=== PATIENT | female | born 1990 | race Caucasian/White ===

== ENCOUNTER 2016-04-11 00:02 | Inpatient (IN) | payer OTHER ==
[2016-04-11] MEDS ORDERED: Lactated Ringers 500 ML IV ONE (00:18)
[2016-04-11] MEDS ORDERED: Penicillin G Potassium 5 MILLUNITS in Sodium Chloride 0.9% 100 ML IV ONE ×2 (00:18→09:00)
[2016-04-11] MEDS ORDERED: Misoprostol 400 MCG (4 X 100 MCG TAB) RECTAL PRN (00:18)
[2016-04-11] MEDS ORDERED: Acetaminophen 325 MG Tab PO PRN (00:18)
[2016-04-11] MEDS ORDERED: Carboprost Tromethamine 250 MCG/1 ML Amp IM PRN (00:18)
[2016-04-11] MEDS ORDERED: Lidocaine 1% 30 ML SDV INJECT PRN (00:18)
[2016-04-11] MEDS ORDERED: fentaNYL 100 MCG/2 ML SDV IVPUSH PRN (00:18)
[2016-04-11] MEDS ORDERED: Methylergonovine 0.2 MG/1 ML Amp IM PRN (00:18)
[2016-04-11] MEDS ORDERED: Ondansetron 4 MG/2 ML SDV IV PRN (00:18)
--- NOTE | 2016-04-11 00:28 | PCM.LDHP ---
L&D History of Present Illness - General Date of Service: 04/11/16 Admit Problem/Dx: Patient Status Order with Admit Dx/Problem 04/11/16 00:18 Patient Status [ADT] Routine Patient Status: Admit to Inpatient Admission Diagnosis/Problem: care Reason for Admit: IOL for postdates Nurse Unit Type: Labor and Delivery Admitting Physician: Sudha Kent Attending Physician: Sudha Kent Admission Diagnosis/Problem Admission Diagnosis/Problem care Source of Information: Patient History Limitations: Reports: No limitations - History of Present Illness Introduction:: 26-year-old at 41w0d presents for induction of labor for post-dates . She is not feeling contractions. Baby has been active. No vaginal bleeding or leaking of fluid. No new headaches or vision changes. Past Medical History - Past Health History Medical/Surgical History: Denies Medical/Surgical History Social & Family History - Tobacco Use Smoking Status *Q: Never Smoker H&P Review of Systems - Review of Systems: Review Of Systems: See Below General: Reports: no symptoms HEENT: Reports: no symptoms Pulmonary: Reports: no symptoms Cardiovascular: Reports: no symptoms Gastrointestinal: Reports: No symptoms Genitourinary: Reports: no symptoms Musculoskeletal: Reports: no symptoms L&D Exam - Exam Exam: See Below - OB Specific heart tones: present heart tones per min: 130 Heart Rate (FHR) Variability: Moderate (6-25 bmp) Presentation: Vertex (Confirmed with bedside ultrasound in clinic on Thursday (04/07/16)) - Patel Score Patel Score Cervix Position: Posterior Patel Score Consistency: Soft Patel Score Effacement: >80% Patel Score Dilation: Closed (Fingertip) Patel Score Infant's Station: -2 Patel Score Total: 6 - Exam General: alert, oriented HEENT: Mucosa moist & pink Lungs: Clear to auscultation, Normal respiratory effort Cardiovascular: regular rate, regular rhythm. No: systolic murmur, diastolic murmur Abdomen: normal bowel sounds, soft Genitourinary: Normal external exam Extremities: edema (+1 in lower extremities) Skin: warm, dry, intact - Patient Data Result Diagrams: 04/11/16 00:25 - Problem List (1) care in third trimester SNOMED Code(s): 440416057, 04079035, 31272439, 980161941, 136593638 ICD Code: Z34.93 - ENCNTR FOR SUPRVSN OF NORMAL PREG, UNSP, THIRD TRIMESTER Status: Acute Current Visit: Yes (2) Positive GBS test SNOMED Code(s): 7976319079017, 4646369121388 ICD Code: B95.1 - STREPTOCOCCUS, GROUP B, CAUSING DISEASES CLASSD ELSWHR Status: Acute Current Visit: Yes (3) Post-dates SNOMED Code(s): 25984276 ICD Code: O48.0 - POST-TERM Status: Acute Current Visit: Yes Problem List Initiated/Reviewed/Updated: Yes Orders Last 24hrs: Active Orders 24 hr Category Date Time Status Patient Status [ADT] Routine ADT 04/11/16 00:18 Ordered Communication Order [RC] ASDIRECTED Care 04/11/16 00:18 Ordered Heart Tones [RC] PER UNIT ROUTINE Care 04/11/16 00:18 Ordered Notify Provider Vital Signs OB [RC] ASDIRECTED Care 04/11/16 00:18 Ordered Notify Provider [RC] PRN Care 04/11/16 00:18 Ordered Pump Management, Intrathecal [RC] ASDIRECTED Care 04/11/16 00:18 Ordered Up ad Alda [RC] ASDIRECTED Care 04/11/16 00:18 Ordered Vital Signs [RC] PER UNIT ROUTINE Care 04/11/16 00:18 Ordered Clear Liquid Diet [DIET] Diet 04/11/16 Breakfast Ordered CBC W/O DIFF,HEMOGRAM [HEME] Routine Lab 04/11/16 00:18 Ordered Acetaminophen [Tylenol] Med 04/11/16 00:18 Ordered 650 mg PO Q4H PRN Carboprost Tromethamine [Hemabate DS] Med 04/11/16 00:18 Ordered 250 mcg IM ASDIRECTED PRN Lactated Ringers @ 125 MLS/HR(1000ml) Med 04/11/16 00:30 Ordered Lactated Ringers [Ringers, Lactated] 1,000 ml IV ASDIRECTED Lactated Ringers [Ringers, Lactated] 500 ml Med 04/11/16 00:18 Ordered IV .BOLUS Lidocaine 1% [Xylocaine-MPF 1%] Med 04/11/16 00:18 Ordered 10 ml INJECT ASDIRECTED PRN Methylergonovine [Methergine] Med 04/11/16 00:18 Ordered 0.2 mg IM ASDIRECTED PRN Misoprostol [Cytotec] Med 04/11/16 00:18 Ordered 800 mcg RECTAL ASDIRECTED PRN Ondansetron [Zofran] Med 04/11/16 00:18 Ordered 4 mg IV Q4H PRN Penicillin G Potassium [Pfizerpen] 3 millunits Med 04/11/16 02:00 Ordered Sodium Chloride 0.9% [Normal Saline] 100 ml IV Q4HR Penicillin G Potassium [Pfizerpen] 5 millunits Med 04/11/16 00:18 Ordered Sodium Chloride 0.9% [Normal Saline] 100 ml IV ONETIME Sodium Chloride 0.9% [Saline Flush] Med 04/11/16 00:18 Ordered 10 ml FLUSH ASDIRECTED PRN fentaNYL [Sublimaze] Med 04/11/16 00:18 Ordered 100 mcg IVPUSH Q1H PRN Saline Lock Insert [OM.PC] Routine Oth 04/11/16 00:18 Ordered Resuscitation Status Routine Resus Stat 04/11/16 00:18 Ordered Medication Orders Acetaminophen (Tylenol) 650 mg PO Q4H PRN PRN Reason: Pain (Mild 1-3) and fever Carboprost Tromethamine (Hemabate Ds) 250 mcg IM ASDIRECTED PRN PRN Reason: HEMORRHAGE Fentanyl (Sublimaze) 100 mcg IVPUSH Q1H PRN PRN Reason: Pain (moderate 4-6) Lactated Ringer's (Ringers, Lactated) 500 mls @ 999 mls/hr IV .BOLUS ONE Stop: 04/11/16 00:48 Lactated Ringer's (Ringers, Lactated) 1,000 mls @ 125 mls/hr IV ASDIRECTED BALJIT Penicillin G Potassium 5 (millunits/ Sodium Chloride) 100 mls @ 200 mls/hr IV ONETIME ONE Stop: 04/11/16 00:47 Penicillin G Potassium 3 (millunits/ Sodium Chloride) 100 mls @ 200 mls/hr IV Q4HR BALJIT Lidocaine HCl (Xylocaine-Mpf 1%) 10 ml INJECT ASDIRECTED PRN PRN Reason: Perineal Repair Methylergonovine Maleate (Methergine) 0.2 mg IM ASDIRECTED PRN PRN Reason: Hemorrhage Misoprostol (Cytotec) 800 mcg RECTAL ASDIRECTED PRN PRN Reason: Hemorrhage Ondansetron HCl (Zofran) 4 mg IV Q4H PRN PRN Reason: Nausea/Vomiting Sodium Chloride (Saline Flush) 10 ml FLUSH ASDIRECTED PRN PRN Reason: Keep Vein Open Assessment/Plan Comment:: ASSESSMENT: 26-year-old who presents to Labor & Delivery at 41w0d for induction of labor --GBS Positive PLAN: 1. Admit to Labor & Delivery 2. Initiate routine intrapartum orders 3. Will place Cytotec vaginally 4. Will start GBS prophylaxis when in labor 5. Plan for pitocin and/or AROM to augment labor if needed 6. Expectant management. Anticipate . Sudha Kent MD
[2016-04-11] MEDS ORDERED: Oxytocin/Normal Saline 30 UNIT/500 ML BAG IV SCH ×2 (00:30→08:30)
[2016-04-11] MEDS: Misoprostol 50 MCG (1/2 of 100 MCG) Tab VAG PRN ×2 (01:04→05:33)
[2016-04-11] MEDS: Lactated Ringers 1,000 ML IV SCH ×2 (08:23→13:20)
[2016-04-11] MEDS: Sodium Chloride 0.9% 10 ML Syringe FLUSH PRN ×2 (08:23→13:15)
--- NOTE | 2016-04-11 11:44 | PCM.SN ---
- Free Text/Narrative Note: Intrathecal, sitting position, sterile prep and drape. 1% lidocaine w bicarb for skinwheal to L2 L3 interspace, introducer, 24 ga pencan x 2. Pos CSF, neg heme, neg parasthesia. 20 mcg pf sufenta, 30 mcg pf fentanyl, 0.1 ml pf 1:1000 epi, and 6 mg of 0.75% pf bupivacaine injected after CSF aspiration. Pt to L lateral position. Procedure time 1120 to 1145
[2016-04-11] MEDS ORDERED: Penicillin G Potassium 3 MILLUNITS in Sodium Chloride 0.9% 100 ML IV SCH (13:00)
[2016-04-11] MEDS ORDERED: Sodium Chloride 0.9% 10 ML Syringe FLUSH PRN (15:31)
[2016-04-11] MEDS ORDERED: Simethicone 80 MG Tab.Chew PO PRN (15:31)
[2016-04-11] MEDS ORDERED: Benzocaine/Menthol 20%-0.5% Spray 56 GM Canister TOP PRN (15:31)
--- NOTE | 2016-04-11 15:33 | PCM.DEL ---
L & D Note - General Info Date of Service: 04/11/16 - Delivery Note Labor: augmented by ARM, induced by oxytocin Cervical Ripening Method: Misoprostil Delivery Outcome: Livebirth Infant Delivery Method: Spontaneous Vaginal Delivery Presentation: Right Occiput Anterior (PHONG) (Confirmed with bedside ultrasound in clinic on Thursday (04/07/16)) Nuchal cord: none Anesthesia Type: Local, Spinal Anesthetic: lidocaine (xylocaine) 0.5% plain Local anesthetic volume: 4cc Amniotic Fluid Description: Clear Episiotomy Type: None Laceration: 1st degree, labial (Repaired with interrupted subreticular sutures and 2 standard interrupted sutures), perineal (Not repaired) Suture type: vicryl Suture size: 3-0 Placenta: intact, spontaneous Cord: 3 vessels Estimated blood loss: 200 : stimulated Provider: Sudha Kent Score 1 min: 9 Score 5 min: 9 Second Stage Interventions: Reports: Second Nurse Assessed Progress of Descent, Second Nurse Reviewed Contraction Pattern, Second Nurse Reviewed Heart Tones, Encouragement Given, Pushing Effectively Delivery Comments (Free Text/Narrative):: 26-year-old presented to the OB floor for induction of labor for postdates . Cytotec 25 mcg was inserted vaginally. A second dose was given 4 hours later. Four hours after the 2nd dose was given, Penicillin for GBS was started as was pitocin for continued induction of labor. Patient received an intrathecal a few hours later. Around 1200 (12 hours after cervical ripening started), AROM was peformed. Patient progressed to complete dilation over the next 2 hours. She pushed for approximately 1 hour and delivered a viable female infant with Apgars of 9 and 9. Baby's measurements are currently pending. Placental delivered intact a short time later, and a 3 vessel cord was noted. A 1st degree perineal laceration was noted but was hemostatic so no sutures were placed. A moderate left labial laceration was noted that extended alongside the urethra. A catheter was placed in the urethra prior to repair of the laceration. The left labial laceration was approximated with interrupted deep and superficial sutures. Bleeding was noted to be appropriate. There were no immediate complications. Induction Criteria - Patel Score Patel Score Dilation: Closed Patel Score Effacement: >80% Patel Score Infant's Station: -2 Patel Score Consistency: Soft Patel Score Cervix Position: Posterior Patel Score Total: 6 Patel Score Presenting Part: Reports: Cephalic - Induction Gestational Age >/= 39 wks: Yes Estimated pelvis: Reports: Adequate Reassuring monitoring strip: Yes Absence of tachy systole: Yes - General Info Date of Service: 04/11/16 - Patient Data Vitals - most recent: Last Vital Signs Temp 36.7 C 04/11/16 08:30 Pulse 75 04/11/16 08:30 Resp 16 04/11/16 08:30 BP 142/81 H 04/11/16 08:30 Pulse Ox 97 04/11/16 00:36 Weight - most recent: 84.822 kg I&O - last 24 hours: Intake & Output 04/11/16 04/11/16 04/11/16 06:59 14:59 22:59 Intake Total 350 Balance 350 Lab Results last 24 hrs: Laboratory Results - last 24 hr 04/11/16 Range/Units 00:25 WBC 10.2 H (5.0-10.0) 10^3/uL RBC 3.81 L (4.2-5.4) 10^6/uL Hgb 12.0 (12.0-16.0) g/dL Hct 36.0 L (37.0-47.0) % MCV 94.5 (80-100) fL MCH 31.5 (27.0-34.0) pg MCHC 33.3 (33.0-35.0) g/dL Plt Count 211 (150-450) 10^3/uL Med Orders - Current: Current Medications Acetaminophen (Tylenol) 650 mg PO Q4H PRN PRN Reason: Pain (Mild 1-3) and fever Carboprost Tromethamine (Hemabate Ds) 250 mcg IM ASDIRECTED PRN PRN Reason: HEMORRHAGE Lactated Ringer's (Ringers, Lactated) 1,000 mls @ 125 mls/hr IV ASDIRECTED BALJIT Last Admin: 04/11/16 13:20 Dose: 125 mls/hr Oxytocin/Sodium Chloride (Pitocin In Ns 30 Unit/500 Ml) 30 unit in 500 mls @ 2 mls/hr IV TITRATE BALJIT; 2 MUNITS/MIN PRN Reason: Protocol Oxytocin/Sodium Chloride (Pitocin In Ns 30 Unit/500 Ml) 30 unit in 500 mls @ 2 mls/hr IV TITRATE BALJIT; 2 MUNITS/MIN PRN Reason: Protocol Lidocaine HCl (Xylocaine-Mpf 1%) 10 ml INJECT ASDIRECTED PRN PRN Reason: Perineal Repair Methylergonovine Maleate (Methergine) 0.2 mg IM ASDIRECTED PRN PRN Reason: Hemorrhage Misoprostol (Cytotec) 800 mcg RECTAL ASDIRECTED PRN PRN Reason: Hemorrhage Misoprostol (Cytotec) 25 mcg VAG Q4HR PRN PRN Reason: Induction of labor Last Admin: 04/11/16 05:33 Dose: 25 mcg Ondansetron HCl (Zofran) 4 mg IV Q4H PRN PRN Reason: Nausea/Vomiting Last Admin: 04/11/16 11:15 Dose: 4 mg Sodium Chloride (Saline Flush) 10 ml FLUSH ASDIRECTED PRN PRN Reason: Keep Vein Open Last Admin: 04/11/16 13:15 Dose: 10 ml Discontinued Medications Fentanyl (Sublimaze) 100 mcg IVPUSH Q1H PRN PRN Reason: Pain (moderate 4-6) Last Admin: 04/11/16 09:43 Dose: 100 mcg Lactated Ringer's (Ringers, Lactated) 500 mls @ 999 mls/hr IV .BOLUS ONE Stop: 04/11/16 00:48 Last Admin: 04/11/16 11:08 Dose: 999 mls/hr Penicillin G Potassium 5 (millunits/ Sodium Chloride) 100 mls @ 200 mls/hr IV ONETIME ONE Stop: 04/11/16 00:47 Penicillin G Potassium 3 (millunits/ Sodium Chloride) 100 mls @ 200 mls/hr IV Q4H BALJIT Penicillin G Potassium 5 (millunits/ Sodium Chloride) 100 mls @ 200 mls/hr IV ONETIME ONE Stop: 04/11/16 09:29 Last Admin: 04/11/16 09:21 Dose: 200 mls/hr Penicillin G Potassium 3 (millunits/ Sodium Chloride) 100 mls @ 200 mls/hr IV Q4H BALJIT Last Admin: 04/11/16 13:14 Dose: 200 mls/hr - Problem List & Annotations (1) care in third trimester SNOMED Code(s): 111484080, 18039081, 63678987, 930378257, 077990737 Code(s): Z34.93 - ENCNTR FOR SUPRVSN OF NORMAL PREG, UNSP, THIRD TRIMESTER Status: Acute Current Visit: Yes (2) Positive GBS test SNOMED Code(s): 2714010050238, 2069602235669 Code(s): B95.1 - STREPTOCOCCUS, GROUP B, CAUSING DISEASES CLASSD ELSWHR Status: Acute Current Visit: Yes (3) Post-dates SNOMED Code(s): 37277039 Code(s): O48.0 - POST-TERM Status: Acute Current Visit: Yes (4) (normal spontaneous vaginal delivery) SNOMED Code(s): 88540606 Code(s): O80 - ENCOUNTER FOR FULL-TERM UNCOMPLICATED DELIVERY Status: Acute Current Visit: Yes (5) Obstetric labial laceration, delivered, current hospitalization SNOMED Code(s): 017861668, 406941872 Code(s): O70.0 - FIRST DEGREE PERINEAL LACERATION DURING DELIVERY Status: Acute Current Visit: Yes - Problem List Review Problem List Initiated/Reviewed/Updated: Yes - My Orders Last 24 Hours: My Active Orders 04/11/16 00:18 Patient Status [ADT] Routine Heart Tones [RC] PER UNIT ROUTINE Up ad Alda [RC] ASDIRECTED Acetaminophen [Tylenol] 650 mg PO Q4H PRN Carboprost Tromethamine [Hemabate DS] 250 mcg IM ASDIRECTED PRN Lidocaine 1% [Xylocaine-MPF 1%] 10 ml INJECT ASDIRECTED PRN Methylergonovine [Methergine] 0.2 mg IM ASDIRECTED PRN Misoprostol [Cytotec] 800 mcg RECTAL ASDIRECTED PRN Ondansetron [Zofran] 4 mg IV Q4H PRN Sodium Chloride 0.9% [Saline Flush] 10 ml FLUSH ASDIRECTED PRN Saline Lock Insert [OM.PC] Routine Resuscitation Status Routine 04/11/16 00:28 Misoprostol [Cytotec] 25 mcg VAG Q4HR PRN 04/11/16 00:30 Lactated Ringers [Ringers, Lactated] 1,000 ml IV ASDIRECTED Oxytocin/Normal Saline [Pitocin in NS 30 UNIT/500 ML] 30 unit in 500 ml IV TITRATE 04/11/16 08:30 Oxytocin/Normal Saline [Pitocin in NS 30 UNIT/500 ML] 30 unit in 500 ml IV TITRATE 04/11/16 15:31 Notify Provider Vital Signs OB [RC] ASDIRECTED Up ad Alda [RC] ASDIRECTED Vital Signs [RC] PFP Consult to Channeler Runner [CONS] Routine Benzocaine/Menthol [Dermoplast Pain Relief [place]] See Dose Instructions TOP Q4H PRN Docusate Sodium [Colace] 100 mg PO BID PRN Ibuprofen [Motrin] 800 mg PO Q8H PRN Simethicone 80 mg PO Q4H PRN Sodium Chloride 0.9% [Saline Flush] 10 ml FLUSH ASDIRECTED PRN Assess Lochia [WOMSER] Per Unit Routine Assess Uterine Involution [WOMSER] Per Unit Routine Breast Pump [WOMSER] Per Unit Routine Ice Therapy [OM.PC] Per Unit Routine Perineal Care [OM.PC] Per Unit Routine Saline Lock Insert [OM.PC] Urgent Sitz Bath [OM.PC] Per Unit Routine 04/11/16 Dinner Regular Diet [DIET] 04/12/16 09:00 Vit with Ca/FA/Iron [ Plus Iron] 1 each PO DAILY - Assessment Assessment:: 26-year-old, now , status post --Left labial laceration, repaired - Plan Plan:: 1. Initiate routine orders 2. Recommended generous use of ice packs as labia will likely swell and become tender. 3. consultation placed 4. Anticipate discharge 04/13/16 Sudha Kent MD
[2016-04-11] MEDS: Ibuprofen 800 MG Tab PO PRN (18:18)
[2016-04-11] MEDS ORDERED: Ketorolac 30 MG/ML SDV IVPUSH ONE (19:50)
[2016-04-11] MEDS: Acetaminophen/HYDROcodone 325-10 MG Tab PO PRN (20:07)
[2016-04-11] MEDS: Docusate Sodium 100 MG Cap PO PRN (20:08)
[2016-04-12] MEDS: Acetaminophen/HYDROcodone 325-10 MG Tab PO PRN ×4 (00:08→23:49)
[2016-04-12] MEDS: Ibuprofen 800 MG Tab PO PRN ×2 (03:00→18:20)
[2016-04-12] MEDS: Penicillin G Potassium 3 MILLUNITS in Sodium Chloride 0.9% 100 ML IV SCH (03:13)
[2016-04-12] MEDS: Docusate Sodium 100 MG Cap PO PRN ×2 (09:12→20:04)
[2016-04-12] MEDS: Prenatal Multivitamin with Calcium/Folic Acid/Iron Tab PO SCH (09:12)
[2016-04-12] MEDS ORDERED: fentaNYL 100 MCG/2 ML SDV IV ONE (12:59)
--- NOTE | 2016-04-12 13:15 | PCM.PNPP ---
- General Info Date of Service: 04/12/16 Admission Dx/Problem (Free Text): Postdates Induction of labor at 41w0d GBS positive Subjective Update: 26-year-old, now , PPD#1 after with left labial laceration. She did receive 1 dose of [place] last night for pain but has been doing well since then. She is ambulating without difficulty. Tolerating a normal diet. Voiding without difficulty. Passing gas. No concerns per patient or nursing. Functional Status: Reports: pain controlled, tolerating diet, ambulating, urinating - Review of Systems General: Reports: no symptoms HEENT: Reports: no symptoms Pulmonary: Reports: no symptoms Cardiovascular: Reports: no symptoms Gastrointestinal: Reports: No symptoms Genitourinary: Reports: no symptoms Musculoskeletal: Reports: no symptoms Skin: Reports: no symptoms - General Info Date of Service: 04/12/16 - Patient Data Vital Signs - most recent: Last Vital Signs Temp 36.7 C 04/12/16 08:00 Pulse 92 04/12/16 08:00 Resp 16 04/12/16 08:00 BP 109/61 04/12/16 08:00 Pulse Ox 98 04/12/16 08:00 Weight - most recent: 84.822 kg I&O - last 24 hours: Intake & Output 04/11/16 04/12/16 04/12/16 22:59 06:59 14:59 Intake Total 1300 750 Balance 1300 750 Med Orders - Current: Current Medications Acetaminophen (Tylenol) 650 mg PO Q4H PRN PRN Reason: Pain (Mild 1-3) and fever Acetaminophen/Hydrocodone Bitart ([place] 325-10 Mg) 1 tab PO Q4H PRN PRN Reason: Pain Last Admin: 04/12/16 03:46 Dose: 1 tab Benzocaine/Menthol (Dermoplast Pain Relief [place]) 0 gm TOP Q4H PRN PRN Reason: Perineal comfort measures Last Admin: 04/11/16 18:17 Dose: 1 spray Carboprost Tromethamine (Hemabate Ds) 250 mcg IM ASDIRECTED PRN PRN Reason: HEMORRHAGE Docusate Sodium (Colace) 100 mg PO BID PRN PRN Reason: Constipation Last Admin: 04/12/16 09:12 Dose: 100 mg Lactated Ringer's (Ringers, Lactated) 1,000 mls @ 125 mls/hr IV ASDIRECTED BALJIT Last Infusion: 04/11/16 18:42 Dose: 0 mls/hr Oxytocin/Sodium Chloride (Pitocin In Ns 30 Unit/500 Ml) 30 unit in 500 mls @ 2 mls/hr IV TITRATE BALJIT; 2 MUNITS/MIN PRN Reason: Protocol Oxytocin/Sodium Chloride (Pitocin In Ns 30 Unit/500 Ml) 30 unit in 500 mls @ 2 mls/hr IV TITRATE BALJIT; 2 MUNITS/MIN PRN Reason: Protocol Last Titration: 04/11/16 18:20 Dose: Infused Ibuprofen (Motrin) 800 mg PO Q8H PRN PRN Reason: Mild Pain or Fever Last Admin: 04/12/16 03:00 Dose: 800 mg Lidocaine HCl (Xylocaine-Mpf 1%) 10 ml INJECT ASDIRECTED PRN PRN Reason: Perineal Repair Last Admin: 04/11/16 15:10 Dose: 10 ml Methylergonovine Maleate (Methergine) 0.2 mg IM ASDIRECTED PRN PRN Reason: Hemorrhage Misoprostol (Cytotec) 800 mcg RECTAL ASDIRECTED PRN PRN Reason: Hemorrhage Misoprostol (Cytotec) 25 mcg VAG Q4HR PRN PRN Reason: Induction of labor Last Admin: 04/11/16 05:33 Dose: 25 mcg Ondansetron HCl (Zofran) 4 mg IV Q4H PRN PRN Reason: Nausea/Vomiting Last Admin: 04/11/16 11:15 Dose: 4 mg Prenat Multivit/It Operations Analyst/Iron/Folic Ac ( Plus Iron) 1 each PO DAILY BALJIT Last Admin: 04/12/16 09:12 Dose: 1 each Simethicone (Simethicone) 80 mg PO Q4H PRN PRN Reason: Gas Sodium Chloride (Saline Flush) 10 ml FLUSH ASDIRECTED PRN PRN Reason: Keep Vein Open Last Admin: 04/11/16 13:15 Dose: 10 ml Sodium Chloride (Saline Flush) 10 ml FLUSH ASDIRECTED PRN PRN Reason: Keep Vein Open Discontinued Medications Fentanyl (Sublimaze) 100 mcg IVPUSH Q1H PRN PRN Reason: Pain (moderate 4-6) Last Admin: 04/11/16 09:43 Dose: 100 mcg Lactated Ringer's (Ringers, Lactated) 500 mls @ 999 mls/hr IV .BOLUS ONE Stop: 04/11/16 00:48 Last Admin: 04/11/16 11:08 Dose: 999 mls/hr Penicillin G Potassium 5 (millunits/ Sodium Chloride) 100 mls @ 200 mls/hr IV ONETIME ONE Stop: 04/11/16 00:47 Last Admin: 04/12/16 03:12 Dose: Not Given Penicillin G Potassium 3 (millunits/ Sodium Chloride) 100 mls @ 200 mls/hr IV Q4H [facility] Last Admin: 04/12/16 03:13 Dose: Not Given Penicillin G Potassium 5 (millunits/ Sodium Chloride) 100 mls @ 200 mls/hr IV ONETIME ONE Stop: 04/11/16 09:29 Last Admin: 04/11/16 09:21 Dose: 200 mls/hr Penicillin G Potassium 3 (millunits/ Sodium Chloride) 100 mls @ 200 mls/hr IV Q4H [facility] Last Admin: 04/11/16 13:14 Dose: 200 mls/hr Ketorolac Tromethamine (Toradol) 30 mg IVPUSH ONETIME ONE Stop: 04/11/16 19:51 Last Admin: 04/12/16 06:29 Dose: Not Given - Interaction Disposition, : in Room with Family Infant Feeding: Breastfed Infant; Nursed Well Support Person: - Recovery Exam Fundal Tone: Firm Fundal Level: At Umbilicus Fundal Placement: Midline Lochia Amount: Moderate Lochia Color: Rubra/Red Perineum Description: Intact, Minimal Bruising/Swelling Episiotomy/Laceration: Approximated Bladder Status: Voiding Urinary Elimination: Voided, Other (see below) Other Urinary Elimination, : denies pain or burning. Continues pericare. - Exam General: alert, oriented HEENT: Pupils equal, Mucous membr. moist/pink Lungs: Clear to auscultation, Normal respiratory effort Cardiovascular: regular rate, regular rhythm. No: murmurs Abdomen: soft, no tenderness Extremities: edema (Trace to lower extremities bilaterally) Skin: warm, dry, intact - Problem List & Annotations (1) care in third trimester SNOMED Code(s): 247802074, 23184362, 79702493, 397505143, 403818063 Code(s): Z34.93 - ENCNTR FOR SUPRVSN OF NORMAL PREG, UNSP, THIRD TRIMESTER Status: Acute Current Visit: Yes (2) Positive GBS test SNOMED Code(s): 3882671204959, 5057928035565 Code(s): B95.1 - STREPTOCOCCUS, GROUP B, CAUSING DISEASES CLASSD ELSWHR Status: Acute Current Visit: Yes (3) Post-dates SNOMED Code(s): 16069374 Code(s): O48.0 - POST-TERM Status: Acute Current Visit: Yes (4) (normal spontaneous vaginal delivery) SNOMED Code(s): 17010693 Code(s): O80 - ENCOUNTER FOR FULL-TERM UNCOMPLICATED DELIVERY Status: Acute Current Visit: Yes (5) Obstetric labial laceration, delivered, current hospitalization SNOMED Code(s): 076689003, 054196024 Code(s): O70.0 - FIRST DEGREE PERINEAL LACERATION DURING DELIVERY Status: Acute Current Visit: Yes - Problem List Review Problem List Initiated/Reviewed/Updated: Yes - My Orders Last 24 Hours: My Active Orders 04/11/16 15:31 Notify Provider Vital Signs OB [RC] ASDIRECTED Vital Signs [RC] 08,20 Consult to Collating Machine Operator [CONS] Routine Benzocaine/Menthol [Dermoplast Pain Relief [place]] See Dose Instructions TOP Q4H PRN Docusate Sodium [Colace] 100 mg PO BID PRN Ibuprofen [Motrin] 800 mg PO Q8H PRN Simethicone 80 mg PO Q4H PRN Sodium Chloride 0.9% [Saline Flush] 10 ml FLUSH ASDIRECTED PRN Assess Lochia [WOMSER] Per Unit Routine Assess Uterine Involution [WOMSER] Per Unit Routine Breast Pump [WOMSER] Per Unit Routine Ice Therapy [OM.PC] Per Unit Routine Perineal Care [OM.PC] Per Unit Routine Saline Lock Insert [OM.PC] Urgent Sitz Bath [OM.PC] Per Unit Routine 04/11/16 19:50 Acetaminophen/HYDROcodone [[place] 325-10 MG] 1 tab PO Q4H PRN 04/11/16 Dinner Regular Diet [DIET] 04/12/16 09:00 Vit with Ca/FA/Iron [ Plus Iron] 1 each PO DAILY - Assessment Assessment:: 26-year-old, now , PPD#1 status post --Left labial laceration, repaired - Plan Plan:: 1. Continue routine orders 2. Continue ice and other conservative measures. If pain worsens again, may have a 2nd dose of [place]. 3. consultation placed 4. Anticipate discharge 04/13/16 Sudha Kent MD
[2016-04-13] MEDS: Ibuprofen 800 MG Tab PO PRN (05:02)
[2016-04-13] MEDS: Acetaminophen/HYDROcodone 325-10 MG Tab PO PRN (05:03)
[2016-04-13] MEDS: Docusate Sodium 100 MG Cap PO PRN (09:05)
[2016-04-13] MEDS: Prenatal Multivitamin with Calcium/Folic Acid/Iron Tab PO SCH (09:05)
[2016-04-13 09:52] VITALS: BP 117/80
--- NOTE | 2016-04-13 12:16 | PCM.DCSUM1 ---
Discharge Summary - Hospital Course Free Text/Narrative:: 26-year-old, now , presented to labor and delivery on 04/11/16 for induction of labor due to postdates . Cervical ripening was done. Pitocin and AROM were used to augment labor. Patient delivered a viable baby girl on with Apgars of 9 and 9. She had a labial laceration that was repaired without difficulty. There were no complications with delivery. - Discharge Data Discharge Date: 04/13/16 Discharge Disposition: Home, Self-Care 01 Condition: Good - Discharge Diagnosis/Problem(s) (1) care in third trimester SNOMED Code(s): 707829038, [id number], 68026017, 296133424, 942052046 ICD Code: Z34.93 - ENCNTR FOR SUPRVSN OF NORMAL PREG, UNSP, THIRD TRIMESTER Status: Acute Current Visit: Yes (2) Positive GBS test SNOMED Code(s): 6196987825294, 7904793249403 ICD Code: B95.1 - STREPTOCOCCUS, GROUP B, CAUSING DISEASES CLASSD ELSWHR Status: Acute Current Visit: Yes (3) Post-dates SNOMED Code(s): 35645441 ICD Code: O48.0 - POST-TERM Status: Acute Current Visit: Yes (4) (normal spontaneous vaginal delivery) SNOMED Code(s): 00475481 ICD Code: O80 - ENCOUNTER FOR FULL-TERM UNCOMPLICATED DELIVERY Status: Acute Current Visit: Yes (5) Obstetric labial laceration, delivered, current hospitalization SNOMED Code(s): 775897747, 641725668 ICD Code: O70.0 - FIRST DEGREE PERINEAL LACERATION DURING DELIVERY Status: Acute Current Visit: Yes - Patient Summary/Data Operative Procedure(s) Performed: Normal spontaneous vaginal delivery. Left labial laceration repair Complications: None Consults: Consultations 04/11/16 15:31 Consult to Coremaking Supervisor [CONS] Routine Labs Pending at D/C: None Recommended Follow-up Testing/Procedures: None Planned Operative Procedure(s) after DC: None Hospital Course: Patient had an unremarkable course. She tolerates general diet and ambulates without difficulty. No fevers, chills, nausea or vomiting. Pain is minimal. - Patient Instructions Diet: Usual Diet as Tolerated Activity: Apply Ice, No Lifting Over 20 Pounds Driving: May Drive Today Showering/Bathing: May Shower Notify Provider of: Fever, Increased Pain - Discharge Plan Home Medications: Home Meds Acetaminophen [Tylenol] 650 mg PO Q4H PRN #0 tablet 04/13/16 [Rx] Docusate Sodium [Colace] 100 mg PO BID PRN #0 cap 04/13/16 [Rx] Ibuprofen [IJD: Ibuprofen] 800 mg PO Q8H PRN #0 tablet 04/13/16 [Rx] Patient Handouts: Home Care Instructions for Mom, Care of a Perineal Tear Referrals: Sudha Kent MD [Physician] - (6 weeks for visit) - Discharge Summary/Plan Comment DC Time >30 min.: No Discharge Summary/Plan Comment: Discharge home today with follow-up in 6 weeks for visit or sooner as needed. - General Info Date of Service: 04/13/16 Admission Dx/Problem (Free Text: Postdates Induction of labor at 41w0d GBS positive Subjective Update: 26-year-old, now , PPD#2 after with left labial laceration. Pain has been well controlled. She is ambulating without difficulty. Tolerating a normal diet. Voiding without difficulty. Passing gas. Bleeding is slowing down. well. No concerns per patient or nursing. Functional Status: Reports: pain controlled, tolerating diet, ambulating, urinating. Denies: new symptoms - Review of Systems General: Reports: no symptoms HEENT: Reports: no symptoms Pulmonary: Reports: no symptoms Cardiovascular: Reports: no symptoms Gastrointestinal: Reports: No symptoms Genitourinary: Reports: no symptoms Musculoskeletal: Reports: no symptoms Skin: Reports: no symptoms - Patient Data Vitals - Most Recent: Last Vital Signs Temp 36.9 C 04/13/16 09:05 Pulse 92 04/13/16 09:05 Resp 16 04/13/16 09:05 BP 117/80 04/13/16 09:05 Pulse Ox 99 04/13/16 09:05 Weight - Most Recent: 84.822 kg I&O - Last 24 hours: Intake & Output 04/12/16 04/13/16 04/13/16 22:59 06:59 14:59 Intake Total 460 780 Balance 460 780 Med Orders - Current: Current Medications Acetaminophen (Tylenol) 650 mg PO Q4H PRN PRN Reason: Pain (Mild 1-3) and fever Acetaminophen/Hydrocodone Bitart (Richardson 325-10 Mg) 1 tab PO Q4H PRN PRN Reason: Pain Last Admin: 04/13/16 05:03 Dose: 1 tab Benzocaine/Menthol (Dermoplast Pain Relief [place]) 0 gm TOP Q4H PRN PRN Reason: Perineal comfort measures Last Admin: 04/11/16 18:17 Dose: 1 spray Carboprost Tromethamine (Hemabate Ds) 250 mcg IM ASDIRECTED PRN PRN Reason: HEMORRHAGE Docusate Sodium (Colace) 100 mg PO BID PRN PRN Reason: Constipation Last Admin: 04/13/16 09:05 Dose: 100 mg Lactated Ringer's (Ringers, Lactated) 1,000 mls @ 125 mls/hr IV ASDIRECTED BALJIT Last Infusion: 04/11/16 18:42 Dose: 0 mls/hr Oxytocin/Sodium Chloride (Pitocin In Ns 30 Unit/500 Ml) 30 unit in 500 mls @ 2 mls/hr IV TITRATE BALJIT; 2 MUNITS/MIN PRN Reason: Protocol Oxytocin/Sodium Chloride (Pitocin In Ns 30 Unit/500 Ml) 30 unit in 500 mls @ 2 mls/hr IV TITRATE BALJIT; 2 MUNITS/MIN PRN Reason: Protocol Last Titration: 04/11/16 18:20 Dose: Infused Ibuprofen (Motrin) 800 mg PO Q8H PRN PRN Reason: Mild Pain or Fever Last Admin: 04/13/16 05:02 Dose: 800 mg Lidocaine HCl (Xylocaine-Mpf 1%) 10 ml INJECT ASDIRECTED PRN PRN Reason: Perineal Repair Last Admin: 04/11/16 15:10 Dose: 10 ml Methylergonovine Maleate (Methergine) 0.2 mg IM ASDIRECTED PRN PRN Reason: Hemorrhage Misoprostol (Cytotec) 800 mcg RECTAL ASDIRECTED PRN PRN Reason: Hemorrhage Misoprostol (Cytotec) 25 mcg VAG Q4HR PRN PRN Reason: Induction of labor Last Admin: 04/11/16 05:33 Dose: 25 mcg Ondansetron HCl (Zofran) 4 mg IV Q4H PRN PRN Reason: Nausea/Vomiting Last Admin: 04/11/16 11:15 Dose: 4 mg Prenat Multivit/Acid Remover/Iron/Folic Ac ( Plus Iron) 1 each PO DAILY [facility] Last Admin: 04/13/16 09:05 Dose: 1 each Simethicone (Simethicone) 80 mg PO Q4H PRN PRN Reason: Gas Sodium Chloride (Saline Flush) 10 ml FLUSH ASDIRECTED PRN PRN Reason: Keep Vein Open Last Admin: 04/11/16 13:15 Dose: 10 ml Sodium Chloride (Saline Flush) 10 ml FLUSH ASDIRECTED PRN PRN Reason: Keep Vein Open Discontinued Medications Fentanyl (Sublimaze) 100 mcg IVPUSH Q1H PRN PRN Reason: Pain (moderate 4-6) Last Admin: 04/11/16 09:43 Dose: 100 mcg Lactated Ringer's (Ringers, Lactated) 500 mls @ 999 mls/hr IV .BOLUS ONE Stop: 04/11/16 00:48 Last Admin: 04/11/16 11:08 Dose: 999 mls/hr Penicillin G Potassium 5 (millunits/ Sodium Chloride) 100 mls @ 200 mls/hr IV ONETIME ONE Stop: 04/11/16 00:47 Last Admin: 04/12/16 03:12 Dose: Not Given Penicillin G Potassium 3 (millunits/ Sodium Chloride) 100 mls @ 200 mls/hr IV Q4H [facility] Last Admin: 04/12/16 03:13 Dose: Not Given Penicillin G Potassium 5 (millunits/ Sodium Chloride) 100 mls @ 200 mls/hr IV ONETIME ONE Stop: 04/11/16 09:29 Last Admin: 04/11/16 09:21 Dose: 200 mls/hr Penicillin G Potassium 3 (millunits/ Sodium Chloride) 100 mls @ 200 mls/hr IV Q4H [facility] Last Admin: 04/11/16 13:14 Dose: 200 mls/hr Ketorolac Tromethamine (Toradol) 30 mg IVPUSH ONETIME ONE Stop: 04/11/16 19:51 Last Admin: 04/12/16 06:29 Dose: Not Given - Exam General: Reports: alert, oriented HEENT: Reports: Pupils reactive, Mucous membr. moist/pink Lungs: Reports: Clear to auscultation, Normal respiratory effort Cardiovascular: Reports: regular rate, regular rhythm Extremities: Reports: edema (Trace to lower extremities bilaterally (left slightly more than right)) Skin: Reports: warm, dry, intact *Q Meaningful Use (DIS) - VTE *Q VTE Criteria *Q: - Stroke *Q Stroke Criteria *Q: - AMI *Q AMI Criteria *Q:
== END 2016-04-13 13:00 | disposition home or self-care (01) | DRG 775 ==
LOC: DL.OBCHECK 00:02 → DL.OB 00:05 → OBSVTOIN 15:04 → DL.OB 15:04
PROVIDERS: ADMIT Family Medicine; ATTEND Family Medicine
PROC: 10E0XZZ Delivery of Products of Conception, External Approach (ICD-10-PCS; principal; 2016-04-11)
PROC: 4A1HXFZ Monitoring of Products of Conception, Cardiac Rhythm, External Approach (ICD-10-PCS; 2016-04-11)
PROC: 3E033VJ Introduction of Other Hormone into Peripheral Vein, Percutaneous Approach (ICD-10-PCS; 2016-04-11)
PROC: 0HQ9XZZ Repair Perineum Skin, External Approach (ICD-10-PCS; 2016-04-11)
PROC: 3E0S3BZ Introduction of Anesthetic Agent into Epidural Space, Percutaneous Approach (ICD-10-PCS; 2016-04-11)
DX: O48.0 Post-term pregnancy (principal); Z3A.41 41 weeks gestation of pregnancy; Z37.0 Single live birth; O99.824 Streptococcus B carrier state complicating childbirth; O70.0 First degree perineal laceration during delivery; O09.33 Supervision of pregnancy with insufficient antenatal care, third trimester
CPT/HCPCS: 36415; 85027; A9270-GY; J2405; J2540; J2590; J3010; J7050; J7120

== ENCOUNTER 2019-05-12 06:28 | Day surgery (SDC) | payer OTHER ==
[~2019-05-12 06:28] MED LIST: Dextrose 5%-0.45% NaCl 1,000 ML IV SCH; Sodium Chloride 0.9% 10 ML Syringe FLUSH PRN
[2019-05-12] MEDS ORDERED: Midazolam 1 MG/ML 2 ML SDV IV ONE ×7 (06:29→07:39)
[2019-05-12] MEDS ORDERED: fentaNYL 100 MCG/2 ML SDV IV ONE ×5 (06:29→07:41)
[2019-05-12] MEDS ORDERED: fentaNYL 100 MCG/2 ML SDV ONE (06:45)
[2019-05-12] MEDS ORDERED: Midazolam 1 MG/ML 2 ML SDV ONE (06:45)
--- NOTE | 2019-05-12 09:15 | OR ---
DATE: 05/12/2019 PROCEDURES: Total colonoscopy, terminal ileoscopy, narrow-band imaging, and multiple pinch biopsies. INSTRUMENT USED: PCF-H190DL Olympus video colonoscope. PREMEDICATIONS: Fentanyl 150 mcg intravenous, Versed 4 mg intravenous, nasal O2 cannula. The procedure was done under pulse oximetry, BP recording, and oracle adf consultant. INDICATION: The patient with chronic unexplained diarrhea, not responsive to medical measures. Colonoscopic examination is done for detection of any polypoid lesions and removal, biopsies to be obtained for microscopic colitis, endoscopic hemostasis therapy if needed. DESCRIPTION OF PROCEDURE: Initial rectal exam was unremarkable. Rigid anoscopy was normal. The colonoscope was passed with ease up to and beyond the ileocecal junction to visualize normal-appearing terminal ileum, NBI views were obtained, photographs were taken, multiple pinch biopsies were obtained and sent for histopathology. Photographs were also taken of the normal-appearing cecum. No bleeding was noted from any of the visualized areas at the commencement of the examination. The bowel preparation was found to be adequate, Greenway scale 2 in right colon and 3 in transverse and left colon, total score 8. No stricture. No vascular ectasia. No large isolated ulcerations seen. No evidence of diffuse inflammatory bowel disease in the form of friability, contact bleeding, or ulcerations. No polyp or tumor mass identified. Probing the proximal sides of folds and flexures using adequate distention and clearing up the stool material, withdrawal of the scope was made. Multiple pinch biopsies were taken from the normal-appearing mucosa of the mid transverse colon, mid descending colon, and rectosigmoid, and sent for any histopathologic evidence of microscopic colitis. No bleeding was noted from any of the visualized areas at the completion of examination. IMPRESSION: Normal study. The patient tolerated the procedure well. [facility] /[id number]
[2019-05-12 10:00] VITALS: BP 105/77; PULSE 65
== END 2019-05-12 09:55 | disposition home or self-care (01) ==
LOC: DL.ENDO 06:28
PROVIDERS: ATTEND Internal Medicine Gastroenterology
DX: K52.9 Noninfective gastroenteritis and colitis, unspecified (principal); F41.1 Generalized anxiety disorder
CPT/HCPCS: 45380; J2250; J3010; J7042

== ENCOUNTER 2020-05-11 06:45 | Inpatient (IN) | payer OTHER ==
[~2020-05-11 06:45] MED LIST changes: +Acetaminophen 325 MG Tab PO PRN; +Carboprost Tromethamine 250 MCG/1 ML Amp IM PRN; -Dextrose 5%-0.45% NaCl 1,000 ML IV SCH; +Lactated Ringers 1,000 ML IV ONE; +Lidocaine 1% 30 ML SDV INJECT PRN; +Methylergonovine 0.2 MG/1 ML Amp IM PRN; +Misoprostol 400 MCG (4 X 100 MCG TAB) RECTAL PRN; +Misoprostol 50 MCG (1/2 of 100 MCG) Tab PO PRN; +Ondansetron 4 MG/2 ML SDV IVPUSH PRN; +Oxytocin/Normal Saline 30 UNIT/500 ML BAG IV SCH; +Tranexamic Acid 1,000 MG in Sodium Chloride 0.9% 100 ML IV PRN; +fentaNYL 100 MCG/2 ML SDV IVPUSH PRN
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
[2020-05-11] MEDS: Lactated Ringers 1,000 ML IV SCH ×2 (10:10→12:30)
[2020-05-11] MEDS ORDERED: fentaNYL 100 MCG/2 ML SDV ONE (11:45)
[2020-05-11] MEDS ORDERED: EPINEPHrine 1 MG/1 ML Amp ONE ×2 (11:45→11:46)
[2020-05-11] MEDS ORDERED: fentaNYL 100 MCG/2 ML SDV ITHECAL ONE (11:46)
[2020-05-11] MEDS ORDERED: Benzocaine/Menthol 20%-0.5% Spray 56 GM Canister TOP PRN (15:14)
[2020-05-11] MEDS ORDERED: Oxytocin 10 Units/1 ML SDV IM PRN (15:14)
[2020-05-11] MEDS ORDERED: Misoprostol 400 MCG (4 X 100 MCG TAB) RECTAL PRN (15:14)
[2020-05-11] MEDS ORDERED: Tranexamic Acid 1,000 MG in Sodium Chloride 0.9% 100 ML IV PRN (15:14)
[2020-05-11] MEDS ORDERED: Carboprost Tromethamine 250 MCG/1 ML Amp IM PRN (15:14)
[2020-05-11] MEDS ORDERED: Docusate Sodium 100 MG Cap PO PRN (15:14)
[2020-05-11] MEDS ORDERED: Simethicone 80 MG Tab.Chew PO PRN (15:14)
[2020-05-11] MEDS ORDERED: Zolpidem 5 MG Tab PO PRN (15:14)
[2020-05-11] MEDS ORDERED: Sodium Chloride 0.9% 10 ML Syringe FLUSH PRN (15:14)
[2020-05-11] MEDS ORDERED: Witch Hazel Medicated Pads 100/Jar TOP PRN (17:22)
[2020-05-11] MEDS: Ibuprofen 800 MG Tab PO PRN (18:27)
--- NOTE | 2020-05-11 23:37 | PCM.PRNOTE ---
- Free Text/Narrative Note: Requested to provide analgesia to full term patient in severe pain. Upon entering the room, patient is sitting on edge of bed complaining of severe abdominal/pelvic pain and discomfort. Procedure was discussed with patient including adverse outcomes and expectations. Pt consented to analgesia, SAB/IT. Pt placed into a proper sitting position. Landmarks for SAB/IT were identified and marked. Hands were washed and appropriate PPE was applied. Back was prepped with betadine x3. A sterile, transparent, fenestrated drape was applied. Excess betadine was removed. Using 3 mL of a 1% lidocaine solution, a skin wheel was placed at the L2/L3 interspace. A 24 ga (4 inch) Pencan spinal needle was inserted until positive for CSF. Negative for heme or paresthesias. Injected fentanyl 30 mcg, sufentanil 25 mcg, and 7.5 mg of a 0.75% bupivacaine solution with an epi wash. Pt was placed left lateral tilt position for approximately 20 minutes. There were zero complications or adverse outcomes. Will continue to monitor. Procedure Date & Time: 05/11/20 [id number]
[2020-05-12] MEDS: Ibuprofen 800 MG Tab PO PRN ×3 (04:35→19:38)
[2020-05-12] MEDS: Acetaminophen 325 MG Tab PO PRN ×2 (04:36→19:37)
[2020-05-12] MEDS ORDERED: Prenatal Multivitamin with Calcium/Folic Acid/Iron Tab PO SCH (09:00)
[2020-05-12] MEDS: Prenatal Multivitamin with Calcium/Folic Acid/Iron Tab PO SCH (09:09)
--- NOTE | 2020-05-12 11:25 | PN ---
DATE: 05/12/2020 SUBJECTIVE: The patient is day #1 from a vaginal delivery. She is COVID-positive. Mom and baby are both doing well. She has had some more cramping with this period than her last baby but is still under control with ibuprofen and Tylenol. Lochia is minimal. PHYSICAL EXAMINATION: Vital Signs: Patient is afebrile. Heart rate 71 to 91, blood pressure 118 to 134 systolic over 64 to 79 diastolic, respiratory rate 18, and O2 saturation 98%. Pelvic: Patient's fundus is firm, below the umbilicus. Extremities: Have no tenderness, no edema. DATA: The patient's blood type is A-positive. She is rubella immune. Hemoglobin prior to delivery was 12.4, platelets were 117. This morning, hemoglobin is 10.8, platelets are 93. ASSESSMENT AND PLAN: day 1 status post vaginal delivery. Mom and baby are both doing well. She is COVID-positive. We will continue precautions there. The patient also with some mild gestational thrombocytopenia. We will continue care and likely discharge the patient home tomorrow. [facility] /[id number]
[2020-05-13] MEDS: Ibuprofen 800 MG Tab PO PRN (08:10)
[2020-05-13] MEDS: Prenatal Multivitamin with Calcium/Folic Acid/Iron Tab PO SCH (08:11)
[2020-05-13 09:09] VITALS: BP 121/80; PULSE 82
--- NOTE | 2020-05-13 12:40 | PN ---
DATE: 05/13/2020 SUBJECTIVE: The patient is day 2, status post vaginal delivery at term. She is COVID positive today. Mom and baby are both doing well. Her lochia is minimal. OBJECTIVE: Vital Signs: She is afebrile. Heart rate 71 to 82, blood pressure 121 to 139 systolic over 64 to 80 diastolic, respiratory rate 16 to 18, and O2 saturation 100%. Pelvic: Patient's fundus is firm, below the umbilicus. Extremities: Have no tenderness, no edema. DATA: Blood type is A-positive. She is rubella immune. Her post delivery hemoglobin yesterday was 10.8. ASSESSMENT AND PLAN: day 2, status post vaginal delivery at term. She is COVID positive. We will discharge her to home. She will continue to follow public health isolation recommendation, and she will follow up with her primary in 6 weeks. [facility] /[id number]
--- NOTE | 2020-05-14 09:09 | DEL ---
DATE: 05/11/2020 PRE-DELIVERY DIAGNOSES: 1. Intrauterine at 38 weeks, 5 days based on LMP of 08/12/19, noted 10/03/19 and confirmed by a 20 week 6 day ultrasound. QUINTON 05/18/20. 2. Maternal COVID positivity, diagnosed 05/08/20 after mother was tested following an exposure. Mild symptoms, but would like to induce to avoid potential complications including maternal deterioration. Plan to induce 05/11/20. 3. Maternal history of macrosomia in prior with plan for induction at 39 weeks, modified because of the above. 4. Maternal anemia, antepartum, affecting in the 2nd trimester, noted 12/07/19 with hemoglobin 11.3 and added iron supplementation, 325 mg at that time. Hemoglobin on admission within normal limits, 12.4. 5. G3, P2002. 6. Group B Streptococcus negative. 8. Maternal blood type A positive. POST-DELIVERY DIAGNOSES: 1. Intrauterine at 38 weeks, 5 days based on LMP of 08/12/19, noted 10/03/19 and confirmed by a 20 week 6 day ultrasound, status-post spontaneous vaginal delivery following Cytotec induction and artificial rupture of membranes. 2. Maternal COVID positivity, diagnosed 05/08/20, with mild symptoms. 3. Maternal history of macrosomia in prior . 4. Maternal anemia, antepartum, affecting in the 2nd trimester Hemoglobin on admission 12.4. 5. G3, P3003. 6. Group B Streptococcus negative. 8. Maternal blood type A positive. PROCEDURES: 1. Artificial rupture of membranes. ANESTHESIA/ANALGESIA: Intrathecal x1. ESTIMATED BLOOD LOSS: Less than 300 mL. SUMMARY OF EVENTS: On this date at 1450 this 3, now para 3-0-0-3, group B Streptococcus negative mother delivered a viable female infant weighing 4005g with scores of 9 and 9 at 1 and 5 minutes, respectively. Delivery was a spontaneous vaginal delivery following Cytotec induction to a sterile field under intrathecal anesthesia x1. Position was occiput posterior. No complications or concerns for umbilical cord. The was delivered, stimulated on the back and head to respiratory response, then subsequently placed on mother's stomach, where Nursing bulb syringed as appropriate. Cord clamping was delayed 3 to 5 minutes. Cord was then clamped and cut by the father. No complications with delivery. Placenta with a 3-vessel cord was delivered spontaneously, intact, and completely. Cord blood was collected. The patient had a small right-sided periurethral and a small left-sided vaginal abrasion. Hemostasis was obtained with pressure, and repair was not required. 30 units of Pitocin was administered IV after placental delivery. Estimated blood loss was less than 300 mL. Infant and mother are recovering well in the patient's room with father at bedside. Mother plans to breastfeed at this time. The patient presented today for Cytotec induction. She is COVID positive with mild symptoms, goal to deliver before potential worsening or complications develop. Originally, she was scheduled for induction next week due to history of macrosomia. Her last menstrual period was 08/12/2019. QUINTON was 07/18/2020 by last menstrual period. EGA today was 38 weeks, 5 days. She tested COVID positive on 05/08/2020. [facility] /[id number] MOLLY
== END 2020-05-13 11:00 | disposition home or self-care (01) | DRG 805 ==
LOC: DL.OBCHECK 06:45 → DL.OB 06:46 → OBSVTOIN 14:50
PROVIDERS: ADMIT Family Medicine; ATTEND Family Medicine
PROC: 10E0XZZ Delivery of Products of Conception, External Approach (ICD-10-PCS; principal; 2020-05-11)
PROC: 10907ZC Drainage of Amniotic Fluid, Therapeutic from Products of Conception, Via Natural or Artificial Opening (ICD-10-PCS; 2020-05-11)
PROC: 3E0P7VZ Introduction of Hormone into Female Reproductive, Via Natural or Artificial Opening (ICD-10-PCS; 2020-05-11)
PROC: 3E033VJ Introduction of Other Hormone into Peripheral Vein, Percutaneous Approach (ICD-10-PCS; 2020-05-11)
PROC: 3E0R3BZ Introduction of Anesthetic Agent into Spinal Canal, Percutaneous Approach (ICD-10-PCS; 2020-05-11)
PROC: 00HU33Z Insertion of Infusion Device into Spinal Canal, Percutaneous Approach (ICD-10-PCS; 2020-05-11)
PROC: 8E0ZXY6 Isolation (ICD-10-PCS; 2020-05-11)
DX: O98.513 Other viral diseases complicating pregnancy, third trimester (principal); U07.1 COVID-19; Z37.0 Single live birth; O99.12 Other diseases of the blood and blood-forming organs and certain disorders involving the immune mechanism complicating childbirth; O99.012 Anemia complicating pregnancy, second trimester; D64.9 Anemia, unspecified; D69.6 Thrombocytopenia, unspecified; Z3A.38 38 weeks gestation of pregnancy
CPT/HCPCS: 01967; 36415; 59409; 85027; A9270-GY; J0171; J2405; J2590; J3010; J7120

== ENCOUNTER 2021-11-20 16:39 | Inpatient (IN) | payer BC, OTHER ==
[~2021-11-20 16:39] MED LIST changes: -Acetaminophen 325 MG Tab PO PRN; -Carboprost Tromethamine 250 MCG/1 ML Amp IM PRN; -Lactated Ringers 1,000 ML IV ONE; -Lidocaine 1% 30 ML SDV INJECT PRN; -Methylergonovine 0.2 MG/1 ML Amp IM PRN; -Misoprostol 400 MCG (4 X 100 MCG TAB) RECTAL PRN; -Misoprostol 50 MCG (1/2 of 100 MCG) Tab PO PRN; +Ondansetron 4 MG/2 ML SDV IVPUSH ONE; -Ondansetron 4 MG/2 ML SDV IVPUSH PRN; -Oxytocin/Normal Saline 30 UNIT/500 ML BAG IV SCH; -Sodium Chloride 0.9% 10 ML Syringe FLUSH PRN; -Tranexamic Acid 1,000 MG in Sodium Chloride 0.9% 100 ML IV PRN; -fentaNYL 100 MCG/2 ML SDV IVPUSH PRN
[2021-11-20] MEDS ORDERED: Benzocaine/Menthol 20%-0.5% Spray 78 GM Cannister TOP ONE (21:20)
[2021-11-20] MEDS ORDERED: Docusate Sodium 100 MG Cap PO ONE (21:20)
[2021-11-20] MEDS ORDERED: Ibuprofen 800 MG Tab PO ONE (21:20)
[2021-11-21] MEDS ORDERED: Ondansetron 4 MG Tab.DIS PO ONE (01:40)
[2021-11-21] MEDS ORDERED: Acetaminophen 325 MG Tab PO ONE (01:45)
[2021-11-21] MEDS ORDERED: Prenatal Multivitamin with Calcium/Folic Acid/Iron Tab PO ONE (09:00)
[2021-11-21] MEDS ORDERED: Acetaminophen/Butalbital/Caffeine 325-50-40 MG Tab PO ONE (12:45)
[2021-11-23] MEDS ORDERED: Ketorolac 30 MG/ML SDV IVPUSH ONE (13:17)
== END 2021-11-22 12:00 | disposition home or self-care (01) | DRG 560 ==
LOC: DL.OBCHECK 16:39 → DL.ZCENSUS 16:40 → OBSVTOIN 17:45
PROVIDERS: ADMIT Family Medicine; ATTEND Family Medicine
PROC: 10E0XZZ Delivery of Products of Conception, External Approach (ICD-10-PCS; principal; 2021-11-20)
PROC: 3E0R3BZ Introduction of Anesthetic Agent into Spinal Canal, Percutaneous Approach (ICD-10-PCS; 2021-11-20)
DX: O42.02 Full-term premature rupture of membranes, onset of labor within 24 hours of rupture (principal); Z37.0 Single live birth; O99.02 Anemia complicating childbirth; D64.9 Anemia, unspecified; Z20.822 Contact with and (suspected) exposure to COVID-19; Z3A.39 39 weeks gestation of pregnancy
CPT/HCPCS: 01967; 36415; 51701; 59409; 85025; A9270-GY; J2405; U0002